=== PATIENT | male | born 1945 | race American Indian/Alaskan Native ===

== ENCOUNTER 2017-08-24 06:06 | Day surgery (SDC) | payer MEDICARE ==
[2017-08-24] MEDS ORDERED: DIPRIVAN 10 MG/ML IV ONE ×2 (07:18)
[2017-08-24] MEDS ORDERED: WATER FOR IRRIG STERILE ONE (07:23)
[2017-08-24] MEDS ORDERED: WATER FOR IRRIG STERILE IR ONE (07:23)
--- NOTE | 2017-08-24 07:28 | Anesthesia Consultation ---
Anesthesia Consult and Med Hx Date of service: 08/24/17 - Airway Anesthetic Teeth Evaluation: Poor (some chipped, missing teeth) ROM Head & Neck: Adequate Mental/Hyoid Distance: Adequate Mallampati Class: Class III Intubation Access Assessment: Possibly Difficult - Pre-Operative Health Status ASA Pre-Surgery Classification: ASA3 Proposed Anesthetic Plan: MAC - Pulmonary Hx Sleep Apnea: Yes - Cardiovascular System Hx Hypertension: Yes - Other Systems Hx Obesity: Yes (BMI 36.6) - Additional Comments Anesthesia Medical History Comments: psoriasis, s/p left colectomy (2012), s/p complex ventral hernia repair
--- NOTE | 2017-08-24 07:29 | Anesthesia Day of Surgery ---
Anesthesia Day of Surgery - Day of Surgery Patient Examined: Yes Patient H&P Reviewed: Yes Patient is NPO: Yes
[2017-08-24] MEDS ORDERED: XYLOCAINE MPF 2% ONE (07:30)
[2017-08-24] MEDS ORDERED: NACL 0.9% 1000 ML 1,000 ML IV SCH (08:00)
--- NOTE | 2017-08-24 08:28 | Short Stay Summary ---
Short Stay Documentation - Allergies and Medications Current Medications: Allergies No Known Allergies Allergy (Verified 08/24/17 07:17) Home Medications Medication Instructions Recorded Confirmed Last Taken Type Norvasc 10 mg PO DAILY 08/24/17 08/24/17 08/24/17 History Active Medications Sodium Chloride (Nacl 0.9% 1000 Ml) 1,000 mls @ 50 mls/hr IV DIRECT BRIDGETTE Last Admin: 08/24/17 07:35 Dose: 50 mls/hr - Brief post op/procedure progress note Date of procedure: 08/24/17 Pre-op diagnosis: Colon cancer screening/surveillance Post-op diagnosis: same (1. Colon polyp 2. Diverticulosis coli 3. Internal hemorrhoids) Procedure: Colonoscopy with polypectomy and placement of an endoclip Anesthesia: MAC Findings: as above Surgeon: MISSY CHAMPION Estimated blood loss: none Pathology: list (Tranverse colon polyp) Specimen disposition: to lab Condition: stable - Disposition Condition at discharge: Stable Disposition: DC-01 TO HOME OR SELFCARE Short Stay Discharge Plan Activity: no restrictions Weight Bearing Status: Full Weight Bearing Diet: regular, low salt Follow up with: GELACIO JOHNSON MD [Primary Care Provider] - 7 Days
[2017-08-24 08:47] VITALS: BP 124/95
--- NOTE | 2017-08-24 15:28 | Post Anesthesia Evaluation ---
- Post Anesthesia Evaluation Patient Participated: Yes Airway Patent: Yes Stable Respiratory Function: Yes Nausea/Vomiting: No Temp > 96.8F: Yes Pain Manageable: Yes Adequeate Hydration: Yes Anesthesia Complications: No
== END 2017-08-24 06:07 | disposition home or self-care (01) ==
LOC: GIO 06:06
PROVIDERS: ATTEND Internal Medicine Gastroenterology
DX: Z12.11 Encounter for screening for malignant neoplasm of colon (principal); D12.3 Benign neoplasm of transverse colon; K64.8 Other hemorrhoids; K57.30 Diverticulosis of large intestine without perforation or abscess without bleeding; I10 Essential (primary) hypertension; E66.9 Obesity, unspecified; Z68.36 Body mass index [BMI] 36.0-36.9, adult
CPT/HCPCS: 45385; 88305; J2704; J7030